=== PATIENT | male | born 1990 | race Caucasian/White ===

== ENCOUNTER 2024-08-01 11:26 | Emergency (ER) | payer BC ==
[2024-08-01] MEDS: Sodium Chloride 0.9% 1,000 ML IV ONE (12:00)
[2024-08-01] MEDS: Ketorolac 30 MG/ML SDV IVPUSH ONE (12:00)
[2024-08-01] MEDS: Ondansetron 4 MG/2 ML SDV IVPUSH ONE (12:01)
[2024-08-01 12:08] LABS: BASOPHILS ABSOLUTE AUTO 0.02 K/uL (0.00-0.20); BASOPHILS PERCENT AUTO 0.2 % (0.0-1.0); EOSINOPHILS ABSOLUTE AUTO 0.01 K/uL (0.00-0.45); EOSINOPHILS PERCENT AUTO 0.1 % (0.0-6.0); HEMATOCRIT 50.4 % (42.0-52.0); HEMOGLOBIN 17.8 g/dL (14.0-18.0); IMMATURE GRAN ABSOLUTE AUTO 0.03 K/uL (0.00-0.05); IMMATURE GRAN PERCENT AUTO 0.3 % (0.0-0.4); LYMPHOCYTES ABSOLUTE AUTO 0.35 K/uL (1.00-4.80); LYMPHOCYTES PERCENT AUTO 3.2 % (24.0-44.0); MEAN CORPUSCULAR HEMOGLOBIN 29.7 pg (28.0-32.0); MEAN CORPUSCULAR HGB CONC 35.3 g/dL (32.0-36.0); MEAN CORPUSCULAR VOLUME 84.1 fL (83.0-99.0); MEAN PLATELET VOLUME 8.5 fL (9.4-12.4); MONOCYTES ABSOLUTE AUTO 0.37 K/uL (0.00-0.80); MONOCYTES PERCENT AUTO 3.4 % (0.0-8.0); NEUTROPHILS ABSOLUTE AUTO 10.18 K/uL (1.80-7.70); NEUTROPHILS PERCENT AUTO 92.8 % (41.0-71.0); PLATELET COUNT,PLT 316 K/uL (150-400); RED BLOOD CELL COUNT 5.99 M/uL (4.52-5.90); WHITE BLOOD CELL COUNT,WBC 10.96 K/uL (3.9-11.3)
[2024-08-01 12:14] LABS: APPEARANCE,URINE CLEAR; BILIRUBIN,URINE NEGATIVE (NEGATIVE); COLOR,URINE YELLOW; GLUCOSE,URINE NEGATIVE (NEGATIVE); KETONES,URINE NEGATIVE (NEGATIVE); LEUKOCYTE ESTERASE,URINE NEGATIVE (NEGATIVE); NITRITE,URINE NEGATIVE (NEGATIVE); OCCULT BLOOD,URINE NEGATIVE (NEGATIVE); PH,URINE 7.5 (5.0-8.0); PROTEIN,URINE NEGATIVE (NEGATIVE); UROBILINOGEN,URINE 0.2 EU/dL (<2.0)
[2024-08-01 12:29] LABS: A/G RATIO 1.2 (0.9-1.6); ALBUMIN 3.9 g/dL (3.4-5.0); BILIRUBIN TOTAL 1.5 mg/dL (0.2-1.0); CARBON DIOXIDE,CO2 29.6 mmol/L (21.0-32.0); CREATININE 1.2 mg/dL (0.8-1.3); EST CRCL DRUG DOSING (CG) 80.33 mL/min; POTASSIUM,K 4.3 mmol/L (3.5-5.1); PROTEIN TOTAL,TP 7.2 g/dL (6.4-8.2)
[2024-08-01] MEDS: Iopamidol 755 MG/ML 500 ML Multipack Bottle IVPUSH STA (13:37)
== END 2024-08-01 14:35 | disposition home or self-care (01) ==
LOC: MW.ED 11:26
DX: K52.9 Noninfective gastroenteritis and colitis, unspecified (principal); Z75.3 Unavailability and inaccessibility of health-care facilities
CPT/HCPCS: 36415; 74177; 80053; 81003; 83690; 85025; 96361; 96374; 96375; 99284; J1885; J2405; J7030; Q9967; 99283